=== PATIENT | female | born 1975 | race African-American/Black ===

== ENCOUNTER 2016-07-05 16:40 | Emergency (ER) ==
[2016-07-05 16:54] VITALS: TEMP 97.7; BMI 30.9
--- NOTE | 2016-07-05 17:20 | ED.PDOC ---
General ED Provider: Dr. GABRIELLE LEE JR Chief Complaint: Dizziness Stated Complaint: Feels dizzy like going to pass out. Now starting to feel sick to stomach[End]since this morning 97.7 82 20 99% 147/99 nausea ate lunch, water this afternoon Time Seen by Physician: 17:19 Mode of Arrival: Walk-In Information Source: Patient Exam Limitations: No limitations [facility] Nursing and Triage Documentation Reviewed and Agree: No Review of Systems - Review Of Systems Constitutional: Reports: Malaise, Weakness Eyes: Reports: No symptoms Ears, Nose, Mouth, Throat: Reports: No symptoms Respiratory: Reports: No symptoms Cardiac: Reports: No symptoms GI: Reports: Nausea : Reports: Frequency Musculoskeletal: Reports: No symptoms Skin: Reports: No symptoms Neurological: Reports: Weakness, Other (vertigo at 1200 otherwise feels syncopal when arising) Endocrine: Reports: No symptoms Hematologic/Lymphatic: Reports: No symptoms All Other Systems: Other Past Medical History - Past Medical History Endocrine: Reports: Dyslipidemia Cardiovascular: Reports: Hypertension Respiratory: Reports: None Hematological: Reports: None Gastrointestinal: Reports: None Genitourinary: Reports: None Neuro/Psych: Reports: None Musculoskeletal: Reports: None Cancer: Reports: None Last Menstrual Period: this month - Surgical History General Surgical History: Reports: Other (breast biopsies) - Family History Family History: Reports: Unknown - Social History Smoking Status: Never smoker Hx Substance Use: No Alcohol Screening: None - Immunizations Tetanus Shot up to Date: Yes Physical Exam - Physical Exam Appearance: Well-appearing, No pain distress, Well-nourished Eyes: [place], EOMI, Conjunctiva clear ENT: Ears normal, Nose normal, Oropharynx normal Neck: Supple Respiratory: Airway patent, Breath sounds clear, Breath sounds equal, Respirations nonlabored Cardiovascular: RRR, Pulses normal, No rub, No murmur GI/: Soft, Nontender, No masses, Bowel sounds normal, No Organomegaly Musculoskeletal: Normal strength, ROM intact, No edema, No calf tenderness Skin: Warm, Dry, Normal color Neurological: Sensation intact, Motor intact, Reflexes intact, Cranial nerves intact, Alert, Oriented Psychiatric: Affect appropriate, Mood appropriate Interpretation - Radiology Interpretation Radiology Interpretation By: Radiologist Radiology Results: Negative Exam Interpreted: CXR, CT Scan (head) - EKG Interpretation Time of EKG #1: 17:45 Rate: Normal Rhythm: Sinus (79) Ectopy: None [place]: NL ST Segment: Normal Re-Evaluation - Re-Evaluation Time of Re-Evaluation: 18:44 (not orthostatic) Status: Unchanged (148/87,82_;147/92,80 L; 153/90,89 T) Critical Care Note - Critical Care Note Total Time (mins): 20 Course - Course Hematology/Chemistry: 07/05/16 17:42 07/05/16 17:42 Vital Signs: Temp Pulse Resp BP Pulse Ox 07/05/16 16:43 97.7 F 82 20 147/99 H 99 Departure - Departure Time of Disposition: 18:46 Disposition: HOME SELF-CARE Discharge Problem: Neurogenic syncope Instructions: Near Syncope (ED) Condition: Good Pt referred to PMD for follow-up: Yes Additional Instructions: limit acitivity for 24 hours upwith asisst today then increased walking tomorrow recheck PMD 3-10 days recommend increased walking each day with assist if needed return if worsening, if any one sided weakness slurred speech or new symnptoms plenty of clear liquids next three days Allergies/Adverse Reactions: Allergies prednisone Adverse Reaction (Verified 07/05/16 16:49) Hives Home Medications: Ambulatory Orders Meclizine HCl [Antivert] 25 mg PO QID PRN #10 tablet 07/05/16
[2016-07-05] MEDS ORDERED: SODIUM CHLORIDE 1,000 ML IV STA (17:32)
[2016-07-05 17:47] LABS: BASOPHILS % (AUTO) 0.4 % (0.0-3.0); EOSINOPHILS # (AUTO) 0.1 K/ul (0.0-0.7); EOSINOPHILS % (AUTO) 0.8 % (0.0-7.0); HEMATOCRIT 35.6 % (37.0-47.0); HEMOGLOBIN 12.6 g/dl (12.0-16.0); IMMATURE GRANULOCYTE % (AUTO) 0.6 % (0.0-5.0); LYMPHOCYTES # (AUTO) 1.9 K/uL (0.60-3.4); LYMPHOCYTES % (AUTO) 23.9 (10.0-50.0); MEAN CORPUSCULAR HEMOGLOBIN 28.3 pg (27.0-31.0); MEAN CORPUSCULAR HGB CONC 35.4 (31.8-35.4); MONOCYTES # (AUTO) 0.6 K/uL (0.4-2.0); MONOCYTES % (AUTO) 8.2 (0-10); NEUTROPHILS # (AUTO) 5.2 K/ul (2.0-6.9); NEUTROPHILS % (AUTO) 66.1; PLATELET COUNT 237 10^3/uL (140-440); RED BLOOD COUNT 4.45 10^6/ul (4.20-5.40); WHITE BLOOD COUNT 7.82 K/ul (4.6-10.2)
[2016-07-05 18:03] LABS: BILIRUBIN,URINE Negative (NEGATIVE); KETONES,URINE Trace (NEGATIVE); LEUKOCYTE ESTERASE ,URINE Negative (NEGATIVE); NITRITE,URINE Negative (NEGATIVE); PROTEIN,URINE Negative (NEGATIVE); URINE, BLOOD 1+ (NEGATIVE)
[2016-07-05 18:06] LABS: ADD URINE MICROSCOPIC YES
[2016-07-05 18:23] LABS: ALANINE AMINOTRANSFERASE 16 U/L (12-78); ALBUMIN 3.7 g/dL (3.4-5.0); ALKALINE PHOSPHATASE 68 U/L (42-98); ASPARTATE AMINO TRANSFERASE 22 U/L (15-37); BILIRUBIN,TOTAL 0.34 mg/dL (0.00-1.20); BLOOD UREA NITROGEN 9 mg/dL (7-18); CALCIUM 9.5 mg/dL (8.2-10.2); CARBON DIOXIDE 25 mmol/L (21-32); CHLORIDE 104 mmol/L (98-107); CREATINE KINASE 126 U/L; CREATININE 0.75 mg/dL (0.60-1.30); GLUCOSE 84 mg/dL (70-110); SODIUM 137 mmol/L (136-145); TOTAL PROTEIN 7.4 g/dL (6.4-8.2)
[2016-07-05 18:25] LABS: CREATINE KINASE MB 2.6 ng/ml (0.0-3.6)
--- NOTE | 2016-07-05 18:44 | CT ---
Exam: Head CT. Date: 07/05/2016. Comparison: None. HISTORY: Near-syncopal episode. TECHNIQUE: Helical scan of the brain was performed. FINDINGS: The calvarium is intact. The paranasal sinuses and mastoid air cells are clear. The brainstem and cerebellum are within normal limits. No abnormal intra or extra-axial fluid, mass or mass effect is present. There is no midline shift or hydrocephalus. No large vessel infarct or hemorrhages identified. Phillips-white interface is maintained. Impression: No acute intracranial findings.
--- NOTE | 2016-07-05 18:45 | DI ---
Exam: Single view chest x-ray. Date: 07/05/2016. Comparison: None. HISTORY: Near-syncopal episode. FINDINGS: The osseous structures are normal. The lungs are clear. The cardiac silhouette and pulm onary vasculature are within normal limits. Impression: No acute intrathoracic findings.
[2016-07-05 18:47] VITALS: BP 153/90
== END 2016-07-05 19:26 | disposition home or self-care (01) ==
LOC: ED 16:40
DX: R55 Syncope and collapse (principal); I10 Essential (primary) hypertension; E78.5 Hyperlipidemia, unspecified
CPT/HCPCS: 36415; 80053; 81001; 82550; 82553; 83880; 84484; 85025; 85379; 93005; 93010; 96360; 99283

== ENCOUNTER 2016-08-09 10:05 | Emergency (ER) ==
[2016-08-09 10:06] VITALS: BMI 30.9
[2016-08-09 10:14] VITALS: BP 144/89; TEMP 100.6
[2016-08-09 10:33] LABS: BILIRUBIN,URINE Negative (NEGATIVE); KETONES,URINE Negative (NEGATIVE); LEUKOCYTE ESTERASE ,URINE 1+ (NEGATIVE); NITRITE,URINE Negative (NEGATIVE); PH,URINE 6.5 (5-9); PROTEIN,URINE Trace (NEGATIVE); URINE, BLOOD 2+ (NEGATIVE)
[2016-08-09 10:35] LABS: URINE PREGNANCY INTERNAL QC INTERNAL QC VALID
[2016-08-09 10:37] LABS: ADD URINE MICROSCOPIC YES; BACTERIA,URINE TRACE (NOT PRESENT)
[2016-08-09 10:51] LABS: BASOPHILS % (AUTO) 0.3 % (0.0-3.0); EOSINOPHILS % (AUTO) 0.1 % (0.0-7.0); HEMATOCRIT 35.6 % (37.0-47.0); HEMOGLOBIN 12.5 g/dl (12.0-16.0); IMMATURE GRANULOCYTE % (AUTO) 0.6 % (0.0-5.0); LYMPHOCYTES # (AUTO) 0.5 K/uL (0.60-3.4); LYMPHOCYTES % (AUTO) 4.9 (10.0-50.0); MEAN CORPUSCULAR HEMOGLOBIN 28.2 pg (27.0-31.0); MEAN CORPUSCULAR HGB CONC 35.1 (31.8-35.4); MEAN CORPUSCULAR VOLUME 80.2 fl (81.0-99.0); MONOCYTES # (AUTO) 0.7 K/uL (0.4-2.0); MONOCYTES % (AUTO) 6.7 (0-10); NEUTROPHILS # (AUTO) 9.2 K/ul (2.0-6.9); NEUTROPHILS % (AUTO) 87.4; PLATELET COUNT 199 10^3/uL (140-440); RED BLOOD COUNT 4.44 10^6/ul (4.20-5.40); WHITE BLOOD COUNT 10.48 K/ul (4.6-10.2)
[2016-08-09 11:08] LABS: ALBUMIN 3.9 g/dL (3.4-5.0); ALBUMIN/GLOBULIN RATIO 1.03; ANION GAP 11.8; BILIRUBIN,TOTAL 0.63 mg/dL (0.00-1.20); BUN/CREATININE RATIO 9.33; CALCIUM 9.6 mg/dL (8.2-10.2); CREATININE 0.75 mg/dL (0.60-1.30); POTASSIUM 3.8 mmol/L (3.5-5.10); TOTAL PROTEIN 7.7 g/dL (6.4-8.2)
--- NOTE | 2016-08-09 11:19 | CT ---
EXAM: CT Abdomen without contrast. CT Pelvis without contrast. HISTORY: Left flank pain. COMPARISON: None available. TECHNIQUE: Multiple axial images of the abdomen and pelvis were obtained without intravenous contra st. Images were reformatted in the coronal plane. FINDINGS: Please note that evaluation of the abdominal and pelvic structures is limited due to lack of intravenous contrast. No acute abnormality identified in the lung bases. Osseous structures are within normal limits for the patient's age. Liver, gallbladder, pancreas, spleen, adrenal glands, and kidneys demonstrate normal contour. No ca lcified renal stones or hydronephrosis detected. The bowel is normal in course and caliber without evidence for obstruction or inflammatory process. There is diastasis of the rectus abdominus muscles in the umbilical region with protrusion of a sma ll bowel loop into this area. Small fat-containing umbilical hernia seen at this level as well. Th e appendix is normal. Uterus demonstrates normal contour. Urinary bladder is unremarkable. No cherelle e fluid or free air detected. IMPRESSION: No acute abnormality within the abdomen or pelvis.
[2016-08-09] MEDS ORDERED: ROCEPHIN IM STA (12:01)
[2016-08-09] MEDS ORDERED: LIDOCAINE 1 % AMP 5 ML (SUTURES) IM STA (12:01)
--- NOTE | 2016-08-09 12:34 | ED.PDOC ---
General ED Provider: Dr. SERAFIN RYAN Chief Complaint: Weakness Stated Complaint: FLANK PAIN DYSURIA Time Seen by Physician: 10:10 Mode of Arrival: Walk-In Information Source: Patient Exam Limitations: No limitations Nursing and Triage Documentation Reviewed and Agree: Yes Complaint Exam - Complaint/Exam Patient Complains of: Reports: Dysuria Onset/Duration: 2 DAYS Symptoms Are: Still present Timing: Intermittent Initial Severity: Moderate Current Severity: Mild Location of Pain: Reports: Left, Flank, Suprapubic Character: Reports: Burning Aggravating: Reports: Urination Alleviating: Reports: None Associated Signs and Symptoms: Reports: Back pain, Dysuria. Denies: Diaphoresis , Fever, Hematuria, Constipation, Blood in stool, Rectal pain, Appetite change, Nausea, Vomiting, Decreased urine output, Increased urine frequency, Increased thirst, Decreased activity, Lethargy, Abdominal Pain, Bubble bath use, Vaginal bleeding, Vaginal discharge, Genital swelling, Genital blisters, Retained foreign body Review of Systems - Review Of Systems Constitutional: Reports: No symptoms Eyes: Reports: No symptoms Ears, Nose, Mouth, Throat: Reports: No symptoms Respiratory: Reports: No symptoms Cardiac: Reports: No symptoms GI: Reports: No symptoms : Reports: No symptoms Musculoskeletal: Reports: Back pain Skin: Reports: No symptoms Neurological: Reports: No symptoms Endocrine: Reports: No symptoms Hematologic/Lymphatic: Reports: No symptoms All Other Systems: Reviewed and Negative Past Medical History - Past Medical History Endocrine: Reports: Dyslipidemia Cardiovascular: Reports: Hypertension Respiratory: Reports: None Hematological: Reports: None Gastrointestinal: Reports: None Genitourinary: Reports: None Neuro/Psych: Reports: None Musculoskeletal: Reports: None Cancer: Reports: None Last Menstrual Period: LAST MONTH - Surgical History General Surgical History: Reports: Other (breast biopsies) - Family History Family History: Reports: Unknown - Social History Smoking Status: Never smoker Hx Substance Use: No Alcohol Screening: None Physical Exam - Physical Exam Appearance: Well-appearing, No pain distress, Well-nourished Eyes: [place], EOMI, Conjunctiva clear ENT: Ears normal, Nose normal, Oropharynx normal Respiratory: Airway patent, Breath sounds clear, Breath sounds equal, Respirations nonlabored Cardiovascular: RRR, Pulses normal, No rub, No murmur GI/: Soft, Nontender, No masses, Bowel sounds normal, No Organomegaly Musculoskeletal: Normal strength, ROM intact, No edema, No calf tenderness Skin: Warm, Dry, Normal color Neurological: Sensation intact, Motor intact, Reflexes intact, Cranial nerves intact, Alert, Oriented Psychiatric: Affect appropriate, Mood appropriate Interpretation - Radiology Interpretation Radiology Interpretation By: Radiologist Radiology Results: No acute changes Critical Care Note - Critical Care Note Total Time (mins): 0 (PT EXAMINED WITH NURSING STAFF PRESENT AT ALL ALL TIMES D/ C INST GIVEN WITH SAMEUEL AT BEDSIDE MUST START MEDS IN AM) Course - Course Hematology/Chemistry: 08/09/16 10:40 08/09/16 10:40 Orders, Labs, Meds: Lab Review 08/09/16 08/09/16 08/09/16 10:25 10:26 10:40 WBC 10.48 H RBC 4.44 Hgb 12.5 Hct 35.6 L MCV 80.2 L MCH 28.2 MCHC 35.1 RDW Coeff of Josie 12.4 Plt Count 199 Immature Gran % (Auto) 0.6 Neut % (Auto) 87.4 Lymph % (Auto) 4.9 L [place] % (Auto) 6.7 Eos % (Auto) 0.1 Baso % (Auto) 0.3 Immature Gran # (Auto) 0.1 Neut # 9.2 H Lymph # 0.5 L Hodgeman # 0.7 Eos # 0.0 Baso # 0.0 Sodium 138 Potassium 3.8 Chloride 104 Carbon Dioxide 26 Anion Gap 11.8 BUN 7 Creatinine 0.75 Estimated GFR (MDRD) 103.00 BUN/Creatinine Ratio 9.33 Glucose 88 Calcium 9.6 Total Bilirubin 0.63 AST 22 ALT 18 Alkaline Phosphatase 62 Total Protein 7.7 Albumin 3.9 Globulin 3.8 Albumin/Globulin Ratio 1.03 Urine Color Yellow Urine Clarity Clear Urine pH 6.5 Ur Specific [place] 1.015 Urine Protein Trace Urine Glucose (UA) Negative Urine Ketones Negative Urine Blood 2+ Urine Nitrite Negative Urine Bilirubin Negative Urine Urobilinogen 0.2 Ur Leukocyte Esterase 1+ Urine Microscopic RBC 20-30 Urine Microscopic WBC 20-30 Ur Squamous Epith Cells Not present Urine Bacteria Trace Urine Test Negative Orders Category Date Time Status BLOOD CULTURE Stat LAB 08/09/16 10:40 Received CBC W/ AUTO DIFF Stat LAB 08/09/16 10:40 Completed COMPREHENSIVE METABOLIC PANEL Stat LAB 08/09/16 10:40 Completed URINALYSIS C & S IF INDICATED Stat LAB 08/09/16 10:25 Completed URINE CULTURE Stat LAB 08/09/16 10:26 Received URINE Stat LAB 08/09/16 10:26 Completed Ceftriaxone Sodium [Rocephin] MEDS 08/09/16 12:01 Discontinued 1 gm IM ONCE STA Lidocaine HCl/Pf [Lidocaine 1 % Amp 5 ml (Sutures)] MEDS 08/09/16 12:01 Discontinued 2.1 ml IM ONCE STA CT ABDOMEN/PELVIS WO CONTRAST Stat RADS 08/09/16 10:26 Completed Medications Discontinued Medications Generic Name Dose Route Start Last Admin Trade Name Gautam PRN Reason Stop Dose Admin Ceftriaxone Sodium 1 gm 08/09/16 12:01 08/09/16 12:24 Rocephin IM 08/09/16 12:02 1 gm ONCE STA Administration Lidocaine HCl 2.1 ml 08/09/16 12:01 08/09/16 12:25 Lidocaine 1 % Amp 5 Ml (Sutures) IM 08/09/16 12:02 2.1 ml ONCE STA Administration Vital Signs: Temp Pulse Resp BP Pulse Ox 08/09/16 10:06 100.6 F H 111 H 18 144/89 H 97 Departure - Departure Time of Disposition: 12:34 Disposition: HOME SELF-CARE Discharge Problem: Urinary tract infection Qualifiers: Urinary tract infection type: site unspecified Instructions: Urinary Tract Infection in Women (ED), Dysuria (ED) Condition: Good Pt referred to PMD for follow-up: No Prescriptions: Sulfamethoxazole/Trimethoprim [Bactrim Ds Tablet] 1 each PO BID #14 tablet Allergies/Adverse Reactions: Allergies prednisone Adverse Reaction (Verified 08/09/16 10:13) Hives Home Medications: Ambulatory Orders Sulfamethoxazole/Trimethoprim [Bactrim Ds Tablet] 1 each PO BID #14 tablet 08/09 Disposition Discussed With: Patient, Family
== END 2016-08-09 12:46 | disposition home or self-care (01) ==
LOC: ED 10:05
DX: N39.0 Urinary tract infection, site not specified (principal)
CPT/HCPCS: 36415; 80053; 81001; 81025; 85025; 87040; 87086; 87186; 96372; 99283

== ENCOUNTER 2018-08-09 11:14 | Emergency (ER) ==
[2018-08-09 11:16] VITALS: BP 144/97; TEMP 97.2; BMI 33.1
--- NOTE | 2018-08-09 11:21 | ED.PDOC ---
General ED Provider: Dr. YARITZA PLASENCIA-ER Chief Complaint: Tooth Problem Stated Complaint: my tooth is hurting Time Seen by Physician: 11:15 Mode of Arrival: Walk-In Information Source: Patient Exam Limitations: No limitations Nursing and Triage Documentation Reviewed and Agree: Yes Does patient meet sepsis criteria?: No System Inflammatory Response Syndrome: Not Applicable Sepsis Protocol: For patient's 13 years and over: Temp is 96.8 and below OR 101 and greater Pulse >90 BPM Resp >20/minute Acutely Altered Mental Status Are patient's symptoms suggestive of a new infection, such as: -Pneumonia -Skin, Soft Tissue -Endocarditis -UTI -Bone, Joint Infection -Implantable Device -Acute Abdominal Infection -Wound Infection -Meningitis -Blood Stream Catheter Infection -Unknown EENT Complaint Exam - Dental/Oral Complaint/Exam Mechanism of Injury: No known trauma Onset/Duration: 2 days Symptoms Are: Still present Timing: Constant Initial Severity: Mild Current Severity: Moderate Location: left upper premolar Character: Reports: Dull, Aching, Throbbing Aggravating: Reports: Heat, Cold, Chewing Associated Signs and Symptoms: Denies: Swelling, Discharge, Fever, Foul odor, Foul taste in mouth Tooth Findings: Present: Percussion tenderness, Gross decay, Gross caries Cervical Lymphadenopathy Present: No Facial Swelling Present: No Bleeding Present: No Oropharynx Findings: Absent: Clots, Active bleeding Septal Hematoma: No Foreign Body Present: No Dysphagia Present: No Drooling Present: No Asymmetrical Tonsillar Swelling Present: No Uvula Midline: Yes Margie-tonsillar Fluctuence: No Trismus Present: No Palatal Petechiae Present: No Scarlatinaform Rash Present: No Differential Diagnoses: Dental Caries Review of Systems - Review Of Systems Constitutional: Reports: No symptoms Eyes: Reports: No symptoms Ears, Nose, Mouth, Throat: Reports: Mouth pain Respiratory: Reports: No symptoms Cardiac: Reports: No symptoms GI: Reports: No symptoms : Reports: No symptoms Musculoskeletal: Reports: No symptoms Skin: Reports: No symptoms Neurological: Reports: No symptoms Endocrine: Reports: No symptoms Hematologic/Lymphatic: Reports: No symptoms All Other Systems: Reviewed and Negative Past Medical History - Past Medical History Previously Healthy: No Endocrine: Reports: Dyslipidemia Cardiovascular: Reports: Hypertension Respiratory: Reports: None Hematological: Reports: None Gastrointestinal: Reports: None Genitourinary: Reports: None Neuro/Psych: Reports: None Musculoskeletal: Reports: None Cancer: Reports: None Last Menstrual Period: 06/418 - Surgical History General Surgical History: Reports: Other (breast biopsies) - Family History Family History: Reports: Unknown - Social History Smoking Status: Never smoker Hx Substance Use: No Alcohol Screening: None - Immunizations Tetanus Shot up to Date: No Physical Exam - Physical Exam Appearance: Well-appearing, No pain distress, Well-nourished Pain Distress: Moderate Eyes: [place], EOMI, Conjunctiva clear ENT: Ears normal, Nose normal, Oropharynx normal Neck: Supple Respiratory: Airway patent, Breath sounds clear, Breath sounds equal, Respirations nonlabored Cardiovascular: RRR GI/: Soft Musculoskeletal: Normal strength, ROM intact, No edema, No calf tenderness Skin: Warm Neurological: Sensation intact, Alert, Oriented Psychiatric: Affect appropriate, Mood appropriate Critical Care Note - Critical Care Note Total Time (mins): 0 Course - Course Vital Signs: Temp Pulse Resp BP Pulse Ox 08/09/18 11:14 97.2 F L 80 18 144/97 H 97 Departure - Departure Time of Disposition: 11:21 Disposition: HOME SELF-CARE Discharge Problem: Toothache Instructions: Toothache (ED) Condition: Good Pt referred to PMD for follow-up: Yes IPMP verified?: No Additional Instructions: augmentin 875mg bid x 7 days---norco 7.5mg q 4hrs prn pain #10--f/u dentist shin Allergies/Adverse Reactions: Allergies prednisone Adverse Reaction (Verified 08/09/18 11:16) Hives Home Medications: Ambulatory Orders 1 [No Reported Medications] 08/09/18 Disposition Discussed With: Patient, Family
== END 2018-08-09 11:42 | disposition home or self-care (01) ==
LOC: ED 11:14
DX: K08.89 Other specified disorders of teeth and supporting structures (principal); K02.7 Dental root caries; E78.5 Hyperlipidemia, unspecified; I10 Essential (primary) hypertension
CPT/HCPCS: 99282